=== PATIENT | female | born 1970 | race Caucasian/White ===

== ENCOUNTER 2018-10-16 12:07 | Emergency (ER) | payer SELFPAY ==
[~2018-10-16] VITALS: Ht 167.6 cm; Wt 99.8 kg
[2018-10-16 12:36] VITALS: BP 145/96
[2018-10-16] MEDS ORDERED: ACETAMINOPHEN 500 MG TAB PO ONE (13:15)
== END 2018-10-16 14:36 | disposition home or self-care (01) ==
LOC: ER 12:07
DX: R51 Headache (principal); V43.62XA Car passenger injured in collision with other type car in traffic accident, initial encounter; Y93.89 Activity, other specified; Y99.8 Other external cause status; Y92.410 Unspecified street and highway as the place of occurrence of the external cause

== ENCOUNTER 2021-02-23 10:34 | Emergency (ER) | payer SELFPAY ==
[~2021-02-23] VITALS: Ht 167.6 cm; Wt 113.4 kg
[2021-02-23 14:02] VITALS: BP 153/72
[2021-02-23] MEDS ORDERED: IBUP800T27 PO (14:15)
[2021-02-23] MEDS ORDERED: METH750T22 PO (14:15)
== END 2021-02-23 14:17 | disposition home or self-care (01) ==
LOC: ER 10:34
DX: S22.31XA Fracture of one rib, right side, initial encounter for closed fracture (principal); K21.9 Gastro-esophageal reflux disease without esophagitis; Z98.890 Other specified postprocedural states; W01.0XXA Fall on same level from slipping, tripping and stumbling without subsequent striking against object, initial encounter; Y93.89 Activity, other specified; Y92.89 Other specified places as the place of occurrence of the external cause; Y99.8 Other external cause status
CPT/HCPCS: 71101; 93005

== ENCOUNTER 2021-10-29 13:03 | Emergency (ER) | payer SELFPAY ==
[~2021-10-29] VITALS: Ht 167.6 cm; Wt 109.0 kg
[~2021-10-29 13:03] MED LIST: IBUP800T27 PO; METH750T22 PO
[2021-10-29] MEDS ORDERED: CIP03OS RIGHTEYE (16:10)
[2021-10-29 16:15] VITALS: BP 132/64
== END 2021-10-29 16:34 | disposition home or self-care (01) ==
LOC: ER 13:03
DX: H10.9 Unspecified conjunctivitis (principal); K21.9 Gastro-esophageal reflux disease without esophagitis; Z79.1 Long term (current) use of non-steroidal anti-inflammatories (NSAID); Z79.899 Other long term (current) drug therapy